=== PATIENT | female | born 1985 | race Caucasian/White ===

== ENCOUNTER → 2016-07-02 09:35 | Outpatient (CLI) | payer MEDICAID | END | disposition home or self-care (01) | LOC: D.US 09:30 | DX: Z09 Encounter for follow-up examination after completed treatment for conditions other than malignant neoplasm (principal) ==

== ENCOUNTER → 2016-09-09 12:36 | Outpatient (CLI) | payer MEDICAID ==
[~2016-09-09 12:36] MED LIST: HYDROCODON-ACE1 EAC7 PO; IBUPROFEN800 MG PO; OXYCODONE HCL5 MG PO
[2016-09-17 09:52] VITALS: BMI 31.9
== END | disposition home or self-care (01) ==
LOC: D.LAB 12:36
DX: R10.9 Unspecified abdominal pain (principal)

== ENCOUNTER 2016-09-17 06:49 | Day surgery (SDC) | payer MEDICAID ==
[2016-09-16 15:09] LABS: HEMATOCRIT 44.1 % (36.0-48.0); HEMOGLOBIN 14.8 g/dL (12-16); MCH 29.7 pg (26.0-34.0); MCHC 33.6 g/dL (31.0-37.0); MCV 88.6 fL (80.0-100.0); MEAN PLATELET VOLUME 10.4 fL (7.4-10.4); RBC 4.98 10x6/uL (4.00-5.40); RDW 12.9 % (11.5-14.5); WBC 6.9 10x3/uL (4.8-10.8)
[~2016-09-17] VITALS: Ht 160 cm; Wt 81.6 kg
[~2016-09-17 06:49] MED LIST changes: -OXYCODONE HCL5 MG PO
[2016-09-17 09:52] VITALS: BP 126/80; Ht 160 cm; Wt 81.6 kg
[2016-09-17 10:14] LABS: HCG URINE NEGATIVE (NEGATIVE)
[2016-09-17] MEDS ORDERED: OXYCODONE HCL5 MG PO (12:06)
--- NOTE | 2016-09-17 12:34 | NUR ---
THE PATIENT REPORTS SHE HAS HAD CHRONIC ABDOMINAL PAIN FOR A YEAR AND TAKES NORCO EVRY 4 HOURS NORMALLY
--- NOTE | 2016-09-17 14:18 | NUR ---
1418--PT VOIDS WITHOUT DIFFICULTY, IV GARETT'Jovan GUILLEN RN
--- NOTE | 2016-09-17 14:32 | NUR ---
1430--DISCHARGE INSTRUCTIONS GIVEN, PT VERBALIZES UNDERSTANDING. PT OFF UNIT VIA [facility]. WILMER SHERIDAN
--- NOTE | 2016-09-17 21:50 | OP ---
PATIENT NAME: MARLYN SANCHEZ MEDICAL RECORD: [id number] :89 LOCATION:D.[facility] ADMISSION DATE: SURGEON: ECHO BOB MD DATE OF OPERATION: 09/17/2016 SURGEON: Echo Bob MD PREOPERATIVE DIAGNOSES: Chronic abdominal pain and narcotic drug user. POSTOPERATIVE DIAGNOSES: Chronic abdominal pain and narcotic drug user. PROCEDURE PERFORMED: Diagnostic laparoscopy and laparoscopic appendectomy. SURGEON: Echo Bob MD Case is clean contaminated. ESTIMATED BLOOD LOSS: 30 cc. SPECIMENS: Appendix. OPERATIVE REPORT: After consent was obtained, the patient was taken to the operating room and placed in the supine position on the operating table. Next, general anesthesia was given via endotracheal intubation after a timeout was performed that confirmed the correct patient and procedure. The abdomen was then prepped and draped in typical sterile fashion. Local anesthetic was injected just above the umbilicus. A stab incision was made with 11-blade scalpel. Using a 5-mm bladeless optical trocar, the abdomen was entered. Under direct laparoscopic vision, adequate pneumoperitoneum was achieved. The abdominal cavity was inspected. No evidence of bowel injury. No evidence of bleeding. The patient was then placed in Trendelenburg position. Two additional trocars were placed, one in the suprapubic region and a 12-mm trocar in the left lower quadrant. At this time, the abdominal cavity was inspected. There was no evidence of bowel injury. No evidence of bleeding. There was no pathology identified. The cecum was identified. The small bowel was run from the terminal ileum to ligament of Treitz. There was some adhesion at the greater omentum along the right paracolic gutter. These adhesions were taken down with the electrocautery. Again, the cecum was mobilized medially. The appendix was identified. There was some minimal erythema noted at the tip of the appendix. A mesenteric window was created with a [place] dissector. Appendectomy was then performed with a single firing a blue load stapler. The mesoappendix was then taken with a white load firing stapler. The appendix was placed in EndoCatch bag and removed through the 12-mm trocar and sent for permanent pathology. At this time, the pelvis was inspected. There was no evidence of endometriosis. The uterus was elevated. The ____ right ovary were examined. Pictures were obtained of both the right and left ovaries as well as the appendectomy site. Again, no pathology was identified. At this time, the abdomen was copiously irrigated and suctioned. Careful attention was paid to hemostasis. Once all the fluid was suctioned, the abdominal cavity was again inspected. There was no evidence of bowel injury. No evidence of bleeding, no evidence of succuss at this time. The 12-mm trocars removed. The 12-mm trocar site was closed with 0 Vicryl suture and a Odell-Soledad suture passer. Next, all remaining instruments were removed. The abdomen was desufflated. Trocars were removed. Skin was closed with 4-0 Monocryl, Mastisol and Steri-Strips. At the end of the case, all needle and instrument counts were correct. No OPERATIVE REPORT [id number] MARLYN SANCHEZ complications occurred. The patient was extubated and transferred to the PACU in stable condition. TRANSINT:[id number] Voice Confirmation ID: [id number] DOCUMENT ID: [id number] ECHO BOB MD at 2150 CC: [id number] DICTATION DATE: 09/17/16 1205 SIGNAL TESTER: 09/17/[address] [facility] 09/17/16 [facility] [address] [place] [address]
== END 2016-09-17 14:30 | disposition home or self-care (01) ==
LOC: D.OPS 06:49 → D.PAN 10:15 → D.OPS 10:15 → D.PAN 10:45 → D.OPS 14:30
PROVIDERS: Anesthesiology; Surgery
DX: R10.31 Right lower quadrant pain (principal); F17.200 Nicotine dependence, unspecified, uncomplicated; K52.9 Noninfective gastroenteritis and colitis, unspecified; F11.10 Opioid abuse, uncomplicated